=== PATIENT | female | born 1985 | race Caucasian/White ===

== ENCOUNTER 2017-10-25 16:55 | Emergency (ER) | payer SELFPAY ==
[~2017-10-25] VITALS: Ht 162.6 cm; Wt 68.0 kg
[~2017-10-25 16:55] MED LIST: ADDERALL 30 MG30 MG PO; KLONOPIN1 MG PO
[2017-10-25] MEDS: IBUPROFEN 600 MG TAB PO STA ×2 (18:38→18:47)
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
[2017-10-25 19:02] VITALS: BP 124/72
== END 2017-10-25 19:16 | disposition home or self-care (01) ==
LOC: ER 16:55
DX: M54.2 Cervicalgia (principal); S16.1XXA Strain of muscle, fascia and tendon at neck level, initial encounter; V43.52XA Car driver injured in collision with other type car in traffic accident, initial encounter; Y92.488 Other paved roadways as the place of occurrence of the external cause; E28.2 Polycystic ovarian syndrome
CPT/HCPCS: 72050; 99283

== ENCOUNTER 2018-09-09 15:05 | Emergency (ER) | payer OTHER ==
[~2018-09-09] VITALS: Ht 162.6 cm; Wt 88.5 kg
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
[2018-09-09] MEDS ORDERED: LIDOCAINE/PRILOCAINE 2.5-2.5% KIT TOP ONE (15:30)
--- NOTE | 2018-09-09 15:30 | NUR ---
LIDOCAINE CREAM APPLIED TO RECTAL AREA FOR HEMRROIDS
[2018-09-09 16:11] VITALS: BP 119/70
== END 2018-09-09 16:15 | disposition home or self-care (01) ==
LOC: FSED 15:05
DX: O22.43 Hemorrhoids in pregnancy, third trimester (principal)
CPT/HCPCS: 99283

== ENCOUNTER 2021-07-27 15:26 | Emergency (ER) | payer OTHER ==
[~2021-07-27] VITALS: Ht 162.6 cm; Wt 74.8 kg
[2021-07-27] MEDS ORDERED: THERAFLU FLU &1 EAC1 PO (15:49)
[2021-07-27] MEDS ORDERED: IBUPROFEN IB200 MG PO (15:49)
== END 2021-07-27 16:19 | disposition home or self-care (01) ==
LOC: FSED 15:46
DX: B34.9 Viral infection, unspecified (principal); Z20.822 Contact with and (suspected) exposure to COVID-19; E28.2 Polycystic ovarian syndrome; Z71.89 Other specified counseling
CPT/HCPCS: 83518; 87400; 99282

== ENCOUNTER 2021-07-29 02:09 | Emergency (ER) | payer OTHER ==
[~2021-07-29] VITALS: Ht 162.6 cm; Wt 74.8 kg
[~2021-07-29 02:09] MED LIST changes: +IBUPROFEN IB200 MG PO; +THERAFLU FLU &1 EAC1 PO
[2021-07-29] MEDS ORDERED: DONNATAL/LIDOCAINE/MAALOX 30 ML SUSP PO STA (03:03)
[2021-07-29] MEDS ORDERED: ONDANSETRON HCL INJ 2MG/ML 2ML 2 MG/ML VIAL IV STA (03:07)
[2021-07-29] MEDS ORDERED: ONDANSETRON HCL INJ 2MG/ML 2ML 2 MG/ML VIAL ONE (03:20)
[2021-07-29 03:34] LABS: BASOPHILS % 0.6 % (0.0-1.0); EOSINOPHILS # (AUTO) 0.1 (0.0-0.4); EOSINOPHILS % 2.1 % (0.0-6.0); HEMATOCRIT 41.9 % (34.2-44.1); HEMOGLOBIN 13.7 g/dL (12.0-16.0); LYMPHOCYTES # (AUTO) 1.4 (1.0-3.2); MEAN CORPUSCULAR HEMOGLOBIN 30.5 pg (28-32); MEAN CORPUSCULAR HGB CONC 32.7 g/dL (31-35); MEAN CORPUSCULAR VOLUME 93.3 fL (81-99); MONOCYTES # (AUTO) 0.5 (0.2-0.8); MONOCYTES % 11.4 % (4.4-11.3); NEUTROPHILS # (AUTO) 2.6 (2.1-6.9); NEUTROPHILS % 55.7 % (38.7-80.0); PLATELET COUNT 206 x10e3/uL (140-360); RED BLOOD COUNT 4.49 x10e6/uL (3.6-5.1); RED CELL DISTRIBUTION WIDTH 12.6 % (11.7-14.4)
[2021-07-29 03:37] LABS: CLARITY,URINE CLOUDY (CLEAR); COLOR,URINE YELLOW (YELLOW); KETONES,URINE NEGATIVE (NEGATIVE); LEUKOCYTE ESTERASE ,URINE NEGATIVE (NEGATIVE); NITRITE,URINE NEGATIVE (NEGATIVE); PROTEIN,URINE DIPSTICK NEGATIVE (NEGATIVE); URINE UROBILINOGEN 0.2 mg/dL (0.2 - 1)
[2021-07-29 03:41] LABS: BACTERIA,URINE MANY /HPF; EPITHELIAL CELLS,URINE MANY /LPF; MUCUS,URINE MANY (RARE); TRANSITIONAL EPI CELLS,URINE FEW; WBC,URINE (MAN) 21-50 /HPF (0-5)
[2021-07-29 03:51] LABS: ALANINE AMINOTRANSFERASE 15 IU/L (0-55); ALBUMIN 3.9 g/dL (3.5-5.0); ALBUMIN/GLOBULIN RATIO 1.3 (0.8-2.0); ALKALINE PHOSPHATASE 54 IU/L (40-150); ANION GAP 14.4 mmol/L (8-16); BLOOD UREA NITROGEN 7 mg/dL (7-26); BUN/CREATININE RATIO 10 (6-25); CALCIUM 9.3 mg/dL (8.4-10.2); CARBON DIOXIDE 24 mmol/L (22-29); CHLORIDE 104 mmol/L (98-107); CREATINE KINASE 35 IU/L (29-168); CREATININE, SERUM 0.67 mg/dL (0.57-1.11); EST GLOMERULAR FILTRATION RATE 101 ML/MIN (60-); GLUCOSE 105 mg/dL (74-118); LIPASE 126 U/L (8-78); POTASSIUM 3.4 mmol/L (3.5-5.1); SODIUM 139 mmol/L (136-145)
[2021-07-29] MEDS ORDERED: SODIUM CHLORIDE 0.9% 50ML 50 ML ONE (04:25)
[2021-07-29] MEDS ORDERED: IOPAMIDOL 370 MG/ML 200 ML INFUS..BTL INJ ONE (04:25)
[2021-07-29] MEDS ORDERED: ONDANSETRON ODT4 MG PO (05:29)
[2021-07-29] MEDS ORDERED: ACETAMINOPHEN-1 EAC4 PO (05:29)
== END 2021-07-29 05:41 | disposition home or self-care (01) ==
LOC: ER 03:13
DX: R10.13 Epigastric pain (principal); R11.2 Nausea with vomiting, unspecified; E28.2 Polycystic ovarian syndrome
CPT/HCPCS: 36415; 71045; 74177; 80053; 81001; 81025; 82550; 82553; 83690; 83880; 84484; 85025; 93005; 99284; C9113; J2405; Q9967